=== PATIENT | female | born 1955 | race Caucasian/White ===

== ENCOUNTER 2019-03-23 07:29 | Day surgery (SDC) | payer OTHER ==
[~2019-03-23] VITALS: Ht 157.5 cm; Wt 75.7 kg
[~2019-03-23 07:29] MED LIST: PROPRANOLOL
[2019-03-23 08:13] VITALS: Ht 157.5 cm; Wt 75.7 kg
[2019-03-23 09:13] VITALS: BP 130/64; PULSE 60; RESP 16
[2019-03-23] MEDS ORDERED: FENTAnyl 50 MCG/ML VIAL ONE (09:18)
[2019-03-23] MEDS ORDERED: PROPOFOL 20 ML ONE (09:18)
[2019-03-23 10:06] VITALS: BP 118/63; PULSE 52; RESP 16
== END 2019-03-23 10:21 | disposition home or self-care (01) ==
LOC: CANPRESDC → GIL 07:29
PROVIDERS: ATTEND Internal Medicine Gastroenterology
DX: Z12.11 Encounter for screening for malignant neoplasm of colon (principal); K64.8 Other hemorrhoids; D12.5 Benign neoplasm of sigmoid colon
CPT/HCPCS: 45380; 88305; J3010; Z7610